=== PATIENT | female | born 1970 | race Caucasian/White ===

== ENCOUNTER 2024-11-02 12:23 | Emergency (ER) | payer OTHER ==
[~2024-11-02] VITALS: Ht 167.6 cm; Wt 75.7 kg
[2024-11-02 12:27] VITALS: TEMP 98.6
[2024-11-02] MEDS ORDERED: INSU100V7 SQ (13:02)
[2024-11-02] MEDS ORDERED: HYDR-4076 GT (13:02)
[2024-11-02] MEDS ORDERED: LEVE100S GT (13:02)
[2024-11-02] MEDS ORDERED: CETI10TA14 GT (13:02)
[2024-11-02] MEDS ORDERED: FLUT16SP BNOSTRILS (13:02)
[2024-11-02] MEDS ORDERED: APIX5TAB GT (13:02)
[2024-11-02] MEDS ORDERED: CHLO473M5 PO (13:02)
[2024-11-02] MEDS ORDERED: ESOM40SU2 GT (13:02)
[2024-11-02] MEDS ORDERED: LEVO175T7 GT (13:02)
[2024-11-02] MEDS ORDERED: INSU100V42 SQ (13:02)
[2024-11-02] MEDS ORDERED: ONDA-97 GT (13:02)
[2024-11-02] MEDS ORDERED: NUT.250L18 GT (13:02)
[2024-11-02] MEDS ORDERED: IPRA3AMP23 NEB ×2 (13:02)
[2024-11-02] MEDS ORDERED: ACET325T53 GT (13:02)
[2024-11-02] MEDS ORDERED: TIZA-180 GT (13:02)
[2024-11-02] MEDS ORDERED: MULT9LIQ6 GT (13:02)
[2024-11-02] MEDS ORDERED: BACL10TA GT (13:02)
[2024-11-02] MEDS ORDERED: GABA-532 GT (13:02)
[2024-11-02] MEDS ORDERED: DIPH25TA62 GT (13:02)
[2024-11-02] MEDS ORDERED: ACET650S11 RC (13:02)
[2024-11-02 13:44] LABS: CALCIUM, SERUM 9.9 mg/dL (8.5-10.1); CREATININE 0.7 mg/dL (0.6-1.3); POTASSIUM 3.8 mmol/L (3.5-5.1)
[2024-11-02 13:48] LABS: BASOPHILS # (AUTO) 0.1 K/uL (0.0-0.2); BASOPHILS % (AUTO) 0.7 % (0.0-2.0); EOSINOPHILS # (AUTO) 0.2 K/uL (0.0-0.7); EOSINOPHILS % (AUTO) 2.3 % (0.0-6.0); HEMATOCRIT 38 % (33-45); LYMPHOCYTES # (AUTO) 2.9 K/uL (0.8-4.8); LYMPHOCYTES % (AUTO) 37.8 % (20.0-44.0); MEAN CORPUSCULAR HEMOGLOBIN 30 PG (26.0-33.0); MEAN CORPUSCULAR HGB CONC 34 g/dl (31.0-36.0); MEAN CORPUSCULAR VOLUME 86 fL (82-100); MONOCYTES # (AUTO) 0.4 K/uL (0.1-1.30); MONOCYTES % (AUTO) 5.7 % (2.0-12.0); NEUTROPHILS # (AUTO) 4.1 K/uL (1.8-8.9); NEUTROPHILS % (AUTO) 53.5 % (43.0-81.0); PLATELET COUNT (AUTO) 291 K/uL (150-450); RED BLOOD CELL COUNT(AUTO) 4.41 MIL/uL (4.0-5.2); RED CELL DISTRIBUTION WIDTH 14.1 % (11.5-15.0); WHITE BLOOD COUNT (AUTO) 7.7 K/uL (4.3-11.0)
[2024-11-02 14:01] LABS: INR 1.16 (0.91-1.10); PARTIAL THROMBOPLASTIN TIME 26.8 SEC (24.3-34.3); PROTHROMBIN TIME 11.8 SECS (9.2-11.1)
[2024-11-02 15:00] VITALS: BP 109/81; O2SAT 95
== END 2024-11-02 17:45 ==
LOC: ER 12:30
DX: K94.23 Gastrostomy malfunction (principal); I12.9 Hypertensive chronic kidney disease with stage 1 through stage 4 chronic kidney disease, or unspecified chronic kidney disease; E11.22 Type 2 diabetes mellitus with diabetic chronic kidney disease; E03.9 Hypothyroidism, unspecified; G40.909 Epilepsy, unspecified, not intractable, without status epilepticus; Z79.01 Long term (current) use of anticoagulants; Z79.4 Long term (current) use of insulin; Z79.890 Hormone replacement therapy; Z79.899 Other long term (current) drug therapy
CPT/HCPCS: 36415; 71045-TC; 74018; 80048-TC; 85025-TC; 85730-TC

== ENCOUNTER 2024-12-04 17:12 | Emergency (ER) | payer OTHER ==
[~2024-12-04] VITALS: Ht 165.1 cm; Wt 83.9 kg
[~2024-12-04 17:12] MED LIST: ACET325T53 GT; ACET650S11 RC; APIX5TAB GT; BACL10TA GT; CETI10TA14 GT; CHLO473M5 PO; DIPH25TA62 GT; ESOM40SU2 GT; FLUT16SP BNOSTRILS; GABA-532 GT; HYDR-4076 GT; INSU100V42 SQ; INSU100V7 SQ; IPRA3AMP23 NEB; LEVE100S GT; LEVO175T7 GT; MULT9LIQ6 GT; NUT.250L18 GT; ONDA-97 GT; TIZA-180 GT
[2024-12-04] MEDS ORDERED: DIATR MEGLU/DIATRIZOATE SODIUM 30 ML BOTTLE (GASTROGRAPHIN) ONE (17:56)
[2024-12-04 20:02] VITALS: BP 127/94; TEMP 98.3; O2SAT 100
== END 2024-12-04 20:03 ==
LOC: ER 17:17
DX: K94.23 Gastrostomy malfunction (principal); I10 Essential (primary) hypertension; E11.22 Type 2 diabetes mellitus with diabetic chronic kidney disease; E03.9 Hypothyroidism, unspecified; G40.909 Epilepsy, unspecified, not intractable, without status epilepticus; Z79.01 Long term (current) use of anticoagulants; Z79.4 Long term (current) use of insulin; Z79.890 Hormone replacement therapy; Z79.899 Other long term (current) drug therapy
CPT/HCPCS: 99284; 43762; 74018; Q9963